=== PATIENT | female | born 2000 | race African-American/Black ===

== ENCOUNTER 2019-09-15 21:40 | Inpatient (IN) ==
[2019-09-15 22:28] LABS: Apearance,Urine CLEAR (Clear); Bilirubin,Urine Negative (Negative); Blood, Urine Negative (Negative); Glucose,Urine (UA) Negative (Negative); Ketones,Urine Negative (Negative); Mucus,Urine Occasional /LPF (Occasional); Nitrite,Urine Negative (Negative); Protein,Urine Negative; RBC,Urine <1 /HPF (0-4); Squamous Epithelial Cell,Urine Occasional /HPF (0-10); Urine Color Yellow (Yellow); Urine Specific Gravity 1.016 (1.001-1.035); Urine Urobilinogen < 2.0 EU/DL (0.2-1.0); WBC,Urine <1 /HPF (0-6)
[2019-09-15] MEDS ORDERED: ONDANSETRON 4 MG/2 ML VIAL IV PRN (22:38)
[2019-09-15] MEDS ORDERED: BUTORPHANOL 2 MG/ML VIAL IV PRN (22:38)
[2019-09-15] MEDS ORDERED: LABETALOL 200 MG TABLET PO SCH (22:41)
[2019-09-15 22:57] LABS: Basophils % 0.1 % (0.0-0.8); Eosinophils % 0.2 % (0.00-10.9); Hematocrit 36.3 VOL% (35.7-47.0); Hemoglobin 11.8 GM/DL (12.0-16.0); Immature Granulocytes % 0.4 %; Immature Granulocytes Absolute 0.04 #; Lymphocytes % 19.5 % (21.3-54.2); Mean Corpuscular HGB Conc 32.5 GM/DL (32-36); Mean Corpuscular Volume 86.6 FL (87-102); Mean Platelet Volume 11.6 FL (9.6-12.0); Monocytes % 6.5 % (1.7-12.7); Neutrophils % 73.3 % (38.7-73.9); Platelet Count 210 T/CUMM (130-400); Red Blood Count 4.19 MC/CUMM (3.8-5.5); Red Cell Distribution Width 15.3 % (9.3-17.3); White Blood Count 10.4 T/CUMM (4-12)
[2019-09-15] MEDS: hydrALAZINE 20 MG/1 ML VIAL IV PRN ×2 (22:57→23:09)
[2019-09-15] MEDS ORDERED: LACTATED RINGERS 1,000 ML IV SCH (23:00)
[2019-09-15 23:21] LABS: INR 0.9; PT Patient Result 9.5 SECS (9.8-11.9); Partial Thromboplastin Time 28.8 SECS (23.9-33.8)
[2019-09-15 23:33] LABS: Albumin 2.8 G/DL (3.4-5.0); Calcium 8.6 MG/DL (8.5-10.1); Total Protein 7.1 G/DL (6.4-8.3)
[2019-09-16] MEDS ORDERED: MEPERIDINE 50 MG/1 ML VIAL IV PRN (01:42)
[2019-09-16] MEDS ORDERED: FAMOTIDINE 20 MG/2 ML VIAL IV ONE (03:55)
[2019-09-16] MEDS ORDERED: CITRIC ACID/SODIUM CITRATE 30 ML UDCUP PO ONE (03:55)
[2019-09-16] MEDS ORDERED: diphenhydrAMINE 50 MG/1 ML VIAL IV PRN (03:55)
[2019-09-16] MEDS ORDERED: ePHEDrine 50 MG/ML AMP IV PRN (03:55)
[2019-09-16] MEDS ORDERED: LACTATED RINGERS 1,000 ML IV ONE (03:55)
[2019-09-16] MEDS ORDERED: NALOXONE 0.4 MG/ML VIAL IV PRN (03:55)
[2019-09-16] MEDS ORDERED: LACTATED RINGERS 1,000 ML IV SCH (04:00)
[2019-09-16] MEDS ORDERED: fentaNYL 2 MCG/ROPIV 0.2% EPID 100 ML EPIDURAL SCH (04:00)
[2019-09-16] MEDS ORDERED: hydrALAZINE 20 MG/1 ML VIAL IV ONE (04:20)
[2019-09-16] MEDS ORDERED: MAGNESIUM SULF RIDER 100 ML IV ONE (04:40)
[2019-09-16] MEDS ORDERED: MAGNESIUM SULF DRIP 40 GM/1,000 ML ML IV SCH (05:00)
[2019-09-16 06:28] LABS: Apearance,Urine CLEAR (Clear); Bilirubin,Urine Negative (Negative); Blood, Urine Negative (Negative); Glucose,Urine (UA) Negative (Negative); Ketones,Urine 80 mg/dL (Negative); Mucus,Urine Occasional /LPF (Occasional); Nitrite,Urine Negative (Negative); Protein,Urine Negative; RBC,Urine 1 /HPF (0-4); Urine Color Yellow (Yellow); Urine Specific Gravity 1.018 (1.001-1.035); Urine Urobilinogen < 2.0 EU/DL (0.2-1.0); WBC,Urine <1 /HPF (0-6)
[2019-09-16] MEDS ORDERED: OXYTOCIN/LR 20 UNIT/1,000 ML BAG IV ONE ×2 (08:58→09:50)
[2019-09-16] MEDS ORDERED: IBUPROFEN 800 MG TABLET PO PRN (09:50)
[2019-09-16] MEDS ORDERED: WITCH HAZEL PADS 100/JAR TOP PRN (09:50)
[2019-09-16] MEDS ORDERED: ONDANSETRON 4 MG/2 ML VIAL IV PRN (09:50)
[2019-09-16] MEDS ORDERED: BISACODYL 10 MG SUPP RECTAL PRN (09:50)
[2019-09-16] MEDS ORDERED: ACETAMINOPHEN 325 MG TABLET PO PRN (09:50)
[2019-09-16] MEDS ORDERED: DIPH/TET/ACEL PERT BOOSTER VACCINE 0.5 ML VIAL IM ONE (09:50)
[2019-09-16] MEDS ORDERED: LANOLIN 50% CREAM 0.3 OZ TUBE TOP PRN (09:50)
[2019-09-16] MEDS ORDERED: oxyCODONE/ACETAMINOPHEN 5-325 MG TABLET PO PRN (09:50)
[2019-09-16] MEDS ORDERED: BENZOCAINE 20%/MENTHOL 0.5% SPRAY 56 GM CAN TOP PRN (09:50)
[2019-09-16] MEDS ORDERED: MEASLES/MUMPS/RUBELLA VACCINE 0.5 ML VIAL SUBCUT ONE (09:50)
[2019-09-16] MEDS ORDERED: HYDROCORTISONE 2.5% RECTAL CREAM 30 GM TUBE TOP PRN (09:50)
[2019-09-16] MEDS ORDERED: RHO(D) IMMUNE GLOBULIN 300 MCG SYRINGE IM ONE (09:50)
[2019-09-16] MEDS: DOCUSATE SODIUM 100 MG CAPSULE PO SCH (21:41)
[2019-09-17] MEDS ORDERED: hydrALAZINE 20 MG/1 ML VIAL ONE (06:26)
[2019-09-17] MEDS: hydrALAZINE 20 MG/1 ML VIAL IV ONE ×2 (06:32→06:38)
[2019-09-17] MEDS ORDERED: hydrALAZINE 20 MG/1 ML VIAL IV ONE (07:00)
[2019-09-17 07:16] LABS: Basophils % 0.2 % (0.0-0.8); Eosinophils % 0.1 % (0.00-10.9); Hematocrit 25.8 VOL% (35.7-47.0); Hemoglobin 8.7 GM/DL (12.0-16.0); Immature Granulocytes % 0.7 %; Immature Granulocytes Absolute 0.13 #; Lymphocytes # 3.1 10*3/uL (1.4-4.0); Lymphocytes % 15.8 % (21.3-54.2); Mean Corpuscular HGB Conc 33.7 GM/DL (32-36); Mean Corpuscular Volume 84.3 FL (87-102); Mean Platelet Volume 11.1 FL (9.6-12.0); Monocytes % 5.1 % (1.7-12.7); Neutrophils % 78.1 % (38.7-73.9); Platelet Count 174 T/CUMM (130-400); Red Blood Count 3.06 MC/CUMM (3.8-5.5); Red Cell Distribution Width 15.3 % (9.3-17.3); White Blood Count 19.7 T/CUMM (4-12)
[2019-09-17] MEDS: DOCUSATE SODIUM 100 MG CAPSULE PO SCH ×2 (08:43→21:26)
[2019-09-17] MEDS: oxyCODONE/ACETAMINOPHEN 5-325 MG TABLET PO PRN ×2 (15:15→18:10)
[2019-09-18] MEDS: oxyCODONE/ACETAMINOPHEN 5-325 MG TABLET PO PRN (04:39)
[2019-09-18] MEDS: DOCUSATE SODIUM 100 MG CAPSULE PO SCH (08:30)
[2019-09-18 10:36] VITALS: BP 148/86
== END 2019-09-18 11:45 | disposition home or self-care (01) | DRG 807 ==
LOC: N.LDOUT 21:40 → N.LD 21:51 → N.OB 09-16 10:44
PROVIDERS: ADMIT Obstetrics & Gynecology; ATTEND Obstetrics & Gynecology